=== PATIENT | male | born 1970 | race Caucasian/White ===

== ENCOUNTER 2017-02-06 06:04 | Emergency (ER) | payer BC | END 2017-02-06 06:54 | disposition home or self-care (01) | LOC: ER 06:04 | DX: S80.12XA Contusion of left lower leg, initial encounter (principal); S40.012A Contusion of left shoulder, initial encounter; L03.116 Cellulitis of left lower limb; E78.5 Hyperlipidemia, unspecified; W01.0XXA Fall on same level from slipping, tripping and stumbling without subsequent striking against object, initial encounter | CPT/HCPCS: 73030-LT; 73590-LT; 90471; 90714; 93971; 99284 ==